=== PATIENT | male | born 1960 | race Caucasian/White ===

== ENCOUNTER 2017-10-23 15:19 | Observation (INO) | payer BC ==
[~2017-10-23] VITALS: Ht 170.2 cm; Wt 95.5 kg
[2017-10-23 16:00] LABS: PTT 27.6 SEC (25-37)
[2017-10-23 16:02] LABS: AMYLASE 37 IU/L (1-118)
[2017-10-23 16:10] LABS: LIPASE 24 U/L (1.0-51.0)
[2017-10-23 16:16] LABS: TROP-I INTERPRETATION NEGATIVE; TROPONIN-I < 0.01 ng/mL (0.0-0.30)
[2017-10-23 16:46] LABS: HEMATOCRIT 40.2 % (38.0-50.0); HEMOGLOBIN 14.2 G/DL (12.5-16.6); MCH 31.1 PG (29.0-34.0); MCHC 35.3 G/DL (30.0-36.0); PLATELET COUNT 240 K/uL (156-360); RBC DIS.WIDTH-CV 11.9 % (11.8-14.6); RBC DIS.WIDTH-SD 38.3 % (39-53); RED BLOOD COUNT 4.57 M/uL (4.00-5.50); WHITE BLOOD COUNT 8.2 K/uL (4.1-10.2)
[2017-10-23 16:50] LABS: CHLORIDE 103 mEq/L (99-109); POTASSIUM 3.7 mEq/L (3.7-5.4); SODIUM 139 mEq/L (136-147)
[2017-10-23 16:51] LABS: GLUCOSE 105 mg/dL (70-99)
[2017-10-23 16:55] LABS: CREATININE 0.9 mg/dL (0.6-1.3); GFR ESTIMATE (CALCULATED) > 59 mL/min/ (58.99-99999)
[2017-10-23 16:56] LABS: UREA NITROGEN (BUN) 17 mg/dL (9-23)
[2017-10-23 17:28] LABS: AMPHETAMINE NEGATIVE (500 ng/mL); BARBITURATES NEGATIVE (200 ng/mL); BENZODIAZEPINES NEGATIVE (150 ng/mL); BUPRENORPHINE NEGATIVE (10 ng/mL); COCAINE NEGATIVE (150 ng/mL); METHADONE NEGATIVE (200 ng/mL); METHAMPHETAMINE NEGATIVE (500 ng/mL); OPIATES (MORPHINE) NEGATIVE (100 ng/mL); OXYCODONE NEGATIVE (100 ng/mL); PHENCYCLIDINE NEGATIVE (25 ng/mL); PROPOXYPHENE NEGATIVE (300 ng/mL); THC CANNABINOIDS NEGATIVE (50 ng/mL); TRICYCLIC ANTIDEPRESSANTS NEGATIVE (300 ng/mL)
[2017-10-23] MEDS ORDERED: HYDROCHLOROTH12.5 M3 PO (18:39)
[2017-10-23] MEDS ORDERED: NORVASC5 MG PO (18:39)
[2017-10-23] MEDS ORDERED: COZAAR100 MG PO (18:40)
[2017-10-23] MEDS ORDERED: LOW DOSE ASPIRI81 M1 PO (18:40)
[2017-10-23] MEDS ORDERED: B-122500 MC1 SL (18:41)
[2017-10-23 20:51] LABS: HDL CHOLESTEROL 37 MG/DL (Desirable>=40); LDL CHOLESTEROL 85 mg/dL (Desirable<100); NON-HDL CHOLESTEROL 136 mg/dL (Desirable<160); TOTAL CHOLESTEROL 173 mg/dL (Desirable<200); TRIGLYCERIDES 253 MG/DL (Normal: <150)
[2017-10-23 21:01] VITALS: BP 154/67
[2017-10-23 22:56] LABS: TROP-I INTERPRETATION NEGATIVE; TROPONIN-I < 0.01 ng/mL (0.0-0.30)
[2017-10-23 23:45] VITALS: BP 177/72
[2017-10-24 01:13] LABS: TROP-I INTERPRETATION NEGATIVE; TROPONIN-I 0.01 ng/mL (0.0-0.30)
[2017-10-24 03:47] VITALS: BP 158/84
[2017-10-24 07:17] VITALS: BP 131/79
[2017-10-24 10:44] LABS: HEMOGLOBIN A1c (GLYCOHEMOGLOB) 5.7 % (Below 5.7)
[2017-10-24 10:55] VITALS: BP 149/72
[2017-10-24 11:53] VITALS: BP 129/87
[2017-10-24] MEDS ORDERED: ATORVASTATIN CA40 MG PO (12:07)
[2017-10-25] MEDS ORDERED: ZINC50 M1 PO (16:09)
== END 2017-10-24 15:52 | disposition home or self-care (01) ==
LOC: EME 15:19 → EDOF 18:01 → 5WEST 18:01 → EDOF 18:01 → ENRESERV 18:12 → 5WEST 20:44
PROVIDERS: Emergency Medicine; Hospitalist
DX: R20.2 Paresthesia of skin (principal); R07.9 Chest pain, unspecified; F40.240 Claustrophobia; R06.02 Shortness of breath; I10 Essential (primary) hypertension; E53.8 Deficiency of other specified B group vitamins; M19.90 Unspecified osteoarthritis, unspecified site; Z79.82 Long term (current) use of aspirin; Z82.3 Family history of stroke; Z82.49 Family history of ischemic heart disease and other diseases of the circulatory system
CPT/HCPCS: 70450; 80047; 80048; 80048 91; 80061; 82150; 83036; 83605; 83690; 84443; 84484; 85027; 85610; 85730; 93005; 93306; 93880; 99281; 99285; G0378; J1650

== ENCOUNTER 2017-10-25 11:07 | Observation (INO) | payer BC ==
[2017-10-25] VITALS: BP 127/65
[~2017-10-25] VITALS: Ht 170.2 cm; Wt 95.6 kg
[~2017-10-25 11:07] MED LIST: ATORVASTATIN CA40 MG PO; B-122500 MC1 SL; COZAAR100 MG PO; HYDROCHLOROTH12.5 M3 PO; LOW DOSE ASPIRI81 M1 PO; NORVASC5 MG PO
[2017-10-25 13:56] LABS: BASOPHIL (%) 1.1 % (0-1); BASOPHIL COUNT 0.1 K/uL (0-0.1); EOSINOPHIL (%) 1.6 % (0-5); EOSINOPHIL COUNT 0.1 K/uL (0-0.3); HEMATOCRIT 39.2 % (38.0-50.0); HEMOGLOBIN 13.7 G/DL (12.5-16.6); IMMATURE GRANULOCYTE (%) 0.3 % (0.0-0.7); LYMPHOCYTE (%) 10.9 % (15-42); LYMPHOCYTE COUNT 0.8 K/uL (1.0-2.8); MCH 30.4 PG (29.0-34.0); MCHC 34.9 G/DL (30.0-36.0); MCV 86.9 FL (86-99); MONOCYTE (%) 6.8 % (3-12); MONOCYTE COUNT 0.5 K/uL (0-0.8); NEUTROPHIL (%) 79.3 % (45-76); NEUTROPHIL COUNT 5.9 K/uL (1.8-6.4); PLATELET COUNT 219 K/uL (156-360); RBC DIS.WIDTH-CV 11.7 % (11.8-14.6); RBC DIS.WIDTH-SD 37.1 % (39-53); RED BLOOD COUNT 4.51 M/uL (4.00-5.50); WHITE BLOOD COUNT 7.4 K/uL (4.1-10.2)
[2017-10-25 14:14] LABS: ALBUMIN 4.1 g/dL (3.2-4.8); CHLORIDE 103 mEq/L (99-109); POTASSIUM 4.1 mEq/L (3.7-5.4); SODIUM 138 mEq/L (136-147)
[2017-10-25 14:15] LABS: MAGNESIUM 2.1 mg/dL (1.3-2.7)
[2017-10-25 14:16] LABS: GLUCOSE 119 mg/dL (70-99); TOTAL PROTEIN 6.6 g/dL (6.4-8.3)
[2017-10-25 14:18] LABS: TOTAL BILIRUBIN 1.9 mg/dL (0.0-1.0)
[2017-10-25 14:20] LABS: ALKALINE PHOSPHATASE 68 IU/L (3-129); CREATININE 1.2 mg/dL (0.6-1.3); GFR ESTIMATE (CALCULATED) > 59 mL/min/ (58.99-99999)
[2017-10-25 14:21] LABS: UREA NITROGEN (BUN) 16 mg/dL (9-23)
[2017-10-25 14:22] LABS: AST (GOT) 21 IU/L (2-34)
[2017-10-25 14:23] LABS: ALT (GPT) 38 IU/L (3-49); TROP-I INTERPRETATION NEGATIVE; TROPONIN-I < 0.01 ng/mL (0.0-0.30)
[2017-10-25 15:08] LABS: D-DIMER ELISA < 150.00 ng/mLDDU (<230)
[2017-10-25] MEDS ORDERED: ZINC50 M1 PO (16:09)
[2017-10-25 20:13] LABS: TROP-I INTERPRETATION NEGATIVE; TROPONIN-I < 0.01 ng/mL (0.0-0.30)
[2017-10-25 20:16] VITALS: BP 138/70
[2017-10-26] VITALS: BP 127/65
[2017-10-26 02:19] LABS: TROP-I INTERPRETATION NEGATIVE; TROPONIN-I < 0.01 ng/mL (0.0-0.30)
[2017-10-26 04:05] VITALS: BP 136/71
[2017-10-26 07:30] VITALS: BP 138/79
[2017-10-26 11:23] VITALS: BP 131/68
[2017-10-26 16:27] VITALS: BP 141/77
== END 2017-10-26 17:18 | disposition home or self-care (01) ==
LOC: EME 11:07 → EDOF 16:38 → ENRESERV 16:42 → 5SOUTH 19:24
PROVIDERS: Emergency Medicine; Internal Medicine
DX: G45.9 Transient cerebral ischemic attack, unspecified (principal); R07.9 Chest pain, unspecified; E78.1 Pure hyperglyceridemia; I11.0 Hypertensive heart disease with heart failure; I50.30 Unspecified diastolic (congestive) heart failure; E53.8 Deficiency of other specified B group vitamins; M19.90 Unspecified osteoarthritis, unspecified site; F40.240 Claustrophobia; E66.9 Obesity, unspecified; G47.33 Obstructive sleep apnea (adult) (pediatric); Z79.82 Long term (current) use of aspirin; F41.9 Anxiety disorder, unspecified; Z68.32 Body mass index [BMI] 32.0-32.9, adult
CPT/HCPCS: 70551; 80053; 83735; 84484; 85025; 85379; 93005; G0378; J1650; J2405; J7030

== ENCOUNTER 2017-11-03 16:37 | Emergency (ER) | payer BC ==
[~2017-11-03] VITALS: Ht 170.2 cm; Wt 95.0 kg
[~2017-11-03 16:37] MED LIST changes: +ZINC50 M1 PO
[2017-11-03 17:00] LABS: HEMOGLOBIN 13.1 G/DL (12.5-16.6); MCH 30.8 PG (29.0-34.0); MCHC 35.4 G/DL (30.0-36.0); MCV 87.1 FL (86-99); PLATELET COUNT 204 K/uL (156-360); RBC DIS.WIDTH-CV 11.9 % (11.8-14.6); RBC DIS.WIDTH-SD 37.5 % (39-53); RED BLOOD COUNT 4.25 M/uL (4.00-5.50); WHITE BLOOD COUNT 7.8 K/uL (4.1-10.2)
[2017-11-03 17:08] LABS: CHLORIDE 106 mEq/L (99-109); POTASSIUM 4.1 mEq/L (3.7-5.4); SODIUM 141 mEq/L (136-147)
[2017-11-03 17:10] LABS: GLUCOSE 90 mg/dL (70-99)
[2017-11-03 17:12] LABS: PTT 28.3 SEC (25-37)
[2017-11-03 17:14] LABS: CREATININE 1.3 mg/dL (0.6-1.3); GFR ESTIMATE (CALCULATED) > 59 mL/min/ (58.99-99999)
[2017-11-03 17:15] LABS: UREA NITROGEN (BUN) 17 mg/dL (9-23)
[2017-11-03 18:06] LABS: TROP-I INTERPRETATION NEGATIVE; TROPONIN-I < 0.01 ng/mL (0.0-0.30)
[2017-11-03 19:54] VITALS: BP 152/93
== END 2017-11-03 19:58 | disposition home or self-care (01) ==
LOC: EME 16:37
PROVIDERS: Nurse Practitioner Family
DX: R20.2 Paresthesia of skin (principal); I10 Essential (primary) hypertension; D86.9 Sarcoidosis, unspecified
CPT/HCPCS: 71046; 80048; 84484; 85027; 85610; 85730; 93005; 99281; 99284

== ENCOUNTER → 2017-12-13 | Outpatient (CLI) | payer BC ==
[~2017-12-13] VITALS: Ht 170.2 cm; Wt 90.0 kg
[2017-12-13 08:19] VITALS: BP 135/71
== END | disposition home or self-care (01) ==
LOC: OPR 07:40
DX: I67.89 Other cerebrovascular disease (principal); F40.240 Claustrophobia; G40.209 Localization-related (focal) (partial) symptomatic epilepsy and epileptic syndromes with complex partial seizures, not intractable, without status epilepticus; C18.9 Malignant neoplasm of colon, unspecified; G47.30 Sleep apnea, unspecified; I10 Essential (primary) hypertension; Z86.73 Personal history of transient ischemic attack (TIA), and cerebral infarction without residual deficits
CPT/HCPCS: 70553; J0330